=== PATIENT | female | born 1985 | race Caucasian/White ===

== ENCOUNTER 2016-08-28 13:55 | Emergency (ER) | payer BC ==
[2016-08-28 14:32] VITALS: BP 112/68
--- NOTE | 2016-08-28 15:19 | EDM.PDOC ---
ED HPI GENERAL MEDICAL PROBLEM - General Chief Complaint: Back Pain or Injury Stated Complaint: SEVER LOWER BACK PAIN Time Seen by Provider: 08/28/16 15:17 Source of Information: Reports: Patient History Limitations: Reports: No Limitations - History of Present Illness INITIAL COMMENTS - FREE TEXT/NARRATIVE: 30 yo female presents with lower back pain x 1 day. States that she slept on an air mattress last pm and this morning she could not raise out of bed without assistance. Denies numbness/tingling. no other complaints. Onset: Today Duration: Getting Worse Location: Reports: Back Quality: Reports: Ache, Pressure, Sharp Severity: Severe Improves with: Reports: Rest Worsens with: Reports: Movement Context: Reports: Activity Associated Symptoms: Reports: No Other Symptoms Lower Back Pain Score (Numeric/FACES): 8 - Related Data Allergies Allergy/AdvReac Type Severity Reaction Status Date / Time No Known Allergies Allergy Verified 08/28/16 15:21 Home Meds: Home Meds Meloxicam 1 tab PO DAILY 08/28/16 [History] Pregabalin [Lyrica] 1 cap PO TID 08/28/16 [History] Past Medical History Cardiovascular History: Reports: None Respiratory History: Reports: None Genitourinary History: Reports: None Musculoskeletal History: Reports: Back Pain, Chronic Hematologic History: Reports: Anemia, Iron Deficiency Other Hematologic History: Iron Deficiency anemia r/t gastric bypass. PO iron not absorbing and in process of being set up for IV infusions. - Past Surgical History HEENT Surgical History: Reports: Adenoidectomy, Tonsillectomy, Other (See Below) Other HEENT Surgeries/Procedures: wisdom teeth removed GI Surgical History: Reports: Bariatric Procedure, Cholecystectomy Musculoskeletal Surgical History: Reports: Other (See Below) Other Musculoskeletal Surgeries/Procedures:: L5 to S1 Fusion 2014 Social & Family History - Tobacco Use Smoking Status *Q: Never Smoker Second Hand Smoke Exposure: No - Caffeine Use Caffeine Use: Reports: Soda - Recreational Drug Use Recreational Drug Use: No ED ROS GENERAL - Review of Systems Review Of Systems: ROS reveals no pertinent complaints other than HPI. ED EXAM,LOWER BACK PAIN/INJURY - Physical Exam Exam: See Below Exam Limited By: No Limitations General Appearance: Alert, WD/WN, No Apparent Distress Neck: Normal Inspection, Supple, Non-Tender, Full Range of Motion Respiratory/Chest: No Respiratory Distress, Lungs Clear, Normal Breath Sounds, No Accessory Muscle Use, Chest Non-Tender Cardiovascular: Normal Peripheral Pulses, Regular Rate, Rhythm, No Edema, No Gallop, No JVD, No Murmur, No Rub Back Exam: Normal Inspection, Decreased Range of Motion, Vertebral Tenderness Extremities: Normal Inspection, Normal Range of Motion, Non-Tender, No Pedal Edema, Normal Capillary Refill Neurological: Alert, Normal Mood/Affect, Normal Dorsiflexion, CN II-XII Intact, Normal Plantar Flexion, Normal Gait, No Motor/Sensory Deficits, Oriented x 3 Course - Vital Signs Last Recorded V/S: Last Vital Signs Temp 100 F 08/28/16 14:19 Pulse 84 08/28/16 14:19 Resp 16 08/28/16 14:19 BP 112/68 08/28/16 14:19 Pulse Ox 100 08/28/16 14:19 - Orders/Labs/Meds Orders: Active Orders 24 hr Category Date Time Status Lumbar Spine 2 or 3V [CR] Urgent Exams 08/28/16 15:13 Taken Thoracic Spine 2V [CR] Urgent Exams 08/28/16 15:13 Taken Meds: Medications Discontinued Medications Generic Name Dose Route Start Last Admin Trade Name Freq PRN Reason Stop Dose Admin Hydrocodone Bitart/Acetaminophen 1 tab 08/28/16 16:20 08/28/16 16:24 [place] 325-5 Mg PO 08/28/16 16:21 1 tab ONETIME ONE Administration Ibuprofen 800 mg 08/28/16 15:20 08/28/16 15:29 Motrin PO 08/28/16 15:21 Not Given ONETIME ONE Tramadol HCl 50 mg 08/28/16 15:20 08/28/16 15:39 Ultram PO 08/28/16 15:21 50 mg ONETIME ONE Administration - Re-Assessments/Exams Free Text/Narrative Re-Assessment/Exam: 08/28/16 16:40 pain level decreased, will dc home Departure - Departure Time of Disposition: 16:41 Disposition: DC/Tfer to Hospice - Home 50 Condition: Good Clinical Impression: Back pain Qualifiers: Back pain location: low back pain Chronicity: acute Back pain laterality: midline Sciatica presence: without sciatica Qualified Code(s): M54.5 - Low back pain - Discharge Information Instructions: Muscle Strain, [id number], Back Injury Prevention, [id number] , Back Pain, Adult, [id number] Forms: ED Department Discharge Additional Instructions: Follow up with your neurologist as scheduled. Take your medication for severe pain. Continue with range of motion as to not become stiff causing more pain. Return for any worsening symptoms. - My Orders Last 24 Hours: My Active Orders 08/28/16 15:13 Lumbar Spine 2 or 3V [CR] Urgent Thoracic Spine 2V [CR] Urgent - Assessment/Plan Last 24 Hours: My Active Orders 08/28/16 15:13 Lumbar Spine 2 or 3V [CR] Urgent Thoracic Spine 2V [CR] Urgent
[2016-08-28] MEDS ORDERED: traMADol 50 MG Tab PO ONE (15:20)
[2016-08-28] MEDS ORDERED: Ibuprofen 800 MG Tab PO ONE (15:20)
[2016-08-28] MEDS ORDERED: Acetaminophen/HYDROcodone 325-5 MG Tab PO ONE (16:20)
== END 2016-08-28 17:00 | disposition hospice, home (50) ==
LOC: DL.ED 13:55
DX: M54.5 Low back pain (principal); Z79.899 Other long term (current) drug therapy; Z86.2 Personal history of diseases of the blood and blood-forming organs and certain disorders involving the immune mechanism; Z98.890 Other specified postprocedural states; Z90.49 Acquired absence of other specified parts of digestive tract; Z98.84 Bariatric surgery status
CPT/HCPCS: 72070; 72100; 99283; A9270

== ENCOUNTER 2019-07-16 13:14 | Emergency (ER) | payer BC ==
[2019-07-16 13:26] VITALS: BP 122/77; PULSE 100
--- NOTE | 2019-07-16 13:26 | EDM.PDOC ---
ED HPI GENERAL MEDICAL PROBLEM - General Chief Complaint: ENT Problem Stated Complaint: TOOTH BROKE IN HALF Time Seen by Provider: 07/16/19 13:24 Source of Information: Reports: Patient, RN, RN Notes Reviewed History Limitations: Reports: No Limitations - History of Present Illness INITIAL COMMENTS - FREE TEXT/NARRATIVE: 33 y.o F presents with upper back L side dental pain, ongoing for the past couple of weeks. Pt reports that she cracked her tooth and f/u with dentist who prescribed a pain medication and PCN. Pt still taking PCN, reports that she is to f/u August 05 to have tooth removed. Pt reports taking tylenol for pain with minimal relief, last dose at 0800 today Duration: Week(s): (2-3), Constant Location: Reports: Other (dental) Quality: Reports: Ache, Sharp, Throbbing Severity: Severe Improves with: Reports: None Worsens with: Reports: Eating Associated Symptoms: Reports: No Other Symptoms Treatments [employer]ER: Reports: Acetaminophen, Other Medication(s) Tooth/Teeth Pain Score (Numeric/FACES): 8 - Related Data Allergies Allergy/AdvReac Type Severity Reaction Status Date / Time codeine Allergy Other Verified 07/16/19 13:25 hydromorphone [From Dilaudid] Allergy Other Verified 07/16/19 13:25 ketorolac Allergy Other Verified 07/16/19 13:25 latex Allergy Hives Verified 07/16/19 13:25 nifedipine [From Procardia] Allergy Other Verified 07/16/19 13:25 Home Meds: Home Meds Citalopram [Citalopram HBr] 20 mg PO DAILY 07/16/19 [History] Eszopiclone 3 mg PO BEDTIME 07/16/19 [History] Omeprazole 20 mg PO DAILY 07/16/19 [History] Penicillin V Potassium [Veetids] 500 mg PO QID 07/16/19 [History] Zolpidem Tartrate 5 mg PO BEDTIME PRN 07/16/19 [History] Past Medical History Cardiovascular History: Reports: None Respiratory History: Reports: None Genitourinary History: Reports: None Musculoskeletal History: Reports: Back Pain, Chronic Hematologic History: Reports: Anemia, Iron Deficiency Other Hematologic History: Iron Deficiency anemia r/t gastric bypass. PO iron not absorbing and in process of being set up for IV infusions. - Past Surgical History HEENT Surgical History: Reports: Adenoidectomy, Tonsillectomy, Other (See Below) Other HEENT Surgeries/Procedures: wisdom teeth removed GI Surgical History: Reports: Bariatric Procedure, Cholecystectomy Musculoskeletal Surgical History: Reports: Other (See Below) Other Musculoskeletal Surgeries/Procedures:: L5 to S1 Fusion 2014 Social & Family History - Caffeine Use Caffeine Use: Reports: Soda - Living Situation & Occupation Living situation: Reports: with Family ED ROS ENT - Review of Systems Review Of Systems: Comprehensive ROS is negative, except as noted in HPI. ED EXAM, ENT - Physical Exam Exam: See Below Exam Limited By: No Limitations General Appearance: Alert, WD/WN, No Apparent Distress Eye Exam: Bilateral Eye: Normal Inspection Nose: Normal Inspection Mouth/Throat: Dental Pain, Dental Tenderness, Other (Broken tooth with deep caries at left maxillary molar (chronic appearing)). No: Dental Abcess Head: Atraumatic, Normocephalic Neck: Normal Inspection, Supple, Non-Tender, Full Range of Motion Respiratory/Chest: No Respiratory Distress Neurological: Alert, Oriented, CN II-XII Intact, Normal Cognition, No Motor/ Sensory Deficits Psychiatric: Normal Mood Skin: Warm, Dry, Intact, Normal Color, No Rash Course - Vital Signs Last Recorded V/S: Last Vital Signs Temp 97.8 F 07/16/19 13:21 Pulse 100 07/16/19 13:21 Resp 18 07/16/19 13:21 BP 122/77 07/16/19 13:21 Pulse Ox 98 07/16/19 13:21 Departure - Departure Time of Disposition: 13:30 Disposition: Home, Self-Care 01 Condition: Good Clinical Impression: Dental caries extending into dentin - Discharge Information *PRESCRIPTION DRUG MONITORING PROGRAM REVIEWED*: Not Applicable *COPY OF PRESCRIPTION DRUG MONITORING REPORT IN PATIENT BLUE: Not Applicable Instructions: Tooth Injuries, [id number] Forms: ED Department Discharge Additional Instructions: Rx: Viscous Lidocaine 2% Gel Follow up with dentist as planned. Sepsis Event Note - Focused Exam Vital Signs: Vital Signs Temp Pulse Resp BP Pulse Ox 07/16/19 13:21 97.8 F 100 18 122/77 98 Date Exam was Performed: 07/16/19 Time Exam was Performed: 13:30
== END 2019-07-16 13:38 | disposition home or self-care (01) ==
LOC: DL.ED 13:14
DX: K02.9 Dental caries, unspecified (principal); Z88.5 Allergy status to narcotic agent; Z88.6 Allergy status to analgesic agent; Z91.040 Latex allergy status; Z88.8 Allergy status to other drugs, medicaments and biological substances; Z79.899 Other long term (current) drug therapy
CPT/HCPCS: 99282